=== PATIENT | male | born 1990 | race Caucasian/White ===

== ENCOUNTER 2021-06-15 03:19 | Observation (INO) | payer SELFPAY ==
[2021-06-15] VITALS (9 sets, daily range): BP systolic 94–126; BP diastolic 48–82
[~2021-06-15] VITALS: Ht 175.3 cm; Wt 88.7 kg
[~2021-06-15 03:19] MED LIST: CARAFATE1 GM PO; CEPHALEXIN500 MG PO; CORTISPORIN OTI10 ML AD; RANITIDINE75 M3 PO
[2021-06-15 04:25] LABS: HEMATOCRIT 42.6 % (39.0-50.0); HEMOGLOBIN 14.2 g/dl (14.0-18.0); IMMATURE GRANULOCYTES 0.4 % (0.0-5.0); MEAN CELL VOLUME 83.9 fL CALC (80.0-100.0); MEAN CORPUSCULAR HGB CONC 33.3 g/dL CAL (32.0-36.0); NEUT# 3.83 thou/uL (1.82-7.42); RED BLOOD COUNT 5.08 mill/uL (4.70-6.10); RED CELL DISTRI WIDTH 12.4 % (11.5-15.5)
[2021-06-15 04:38] LABS: ALBUMIN 4.5 g/dL (3.2-5.0); ALKALINE PHOSPHATASE 81 u/l (38-126); AMYLASE 54 u/l (30-110); ANION GAP 10 (6-22 (CALC)); BILIRUBIN, TOTAL 0.7 mg/dL (0.0-1.4); BUN 19 mg/dL (9-20); BUN/CREATININE RATIO 22 (12-20 (CALC)); CARBON DIOXIDE 27 mmol/l (22-30); CHLORIDE 106 mmol/l (95-108); CREATININE 0.9 mg/dL (0.7-1.3); GFR > 60 ML/MIN (>=60 (CALC)); GFR FOR AFR.AMER. > 60 ML/MIN (>=60 (CALC)); LIPASE 95 u/l (23-300); POTASSIUM 4.1 mmol/l (3.5-5.1); SGOT/AST 30 u/l (17-59); SODIUM 139 mmol/l (137-146); TOTAL PROTEIN 7.6 g/dL (6.3-8.2)
[2021-06-15 05:47] LABS: URINE BILIRUBIN - DIPSTICK NEGATIVE (NEGATIVE); URINE BLOOD DIPSTICK NEGATIVE (NEGATIVE); URINE COLOR YELLOW; URINE GLUCOSE - DIPSTICK NEGATIVE (NEGATIVE); URINE KETONE NEGATIVE (NEGATIVE); URINE LEUK ESTERASE NEGATIVE (NEGATIVE); URINE NITRITE - DIPSTICK NEGATIVE (Negative); URINE PROTEIN - DIPSTICK NEGATIVE (NEG-TRACE); URINE SPECIFIC GRAVITY 1.025; URINE UROBILINOGEN - DIPSTICK 0.2 E.U./dL (0.2)
[2021-06-15] MEDS ORDERED: PERCOCET 5/325M1 TAB PO (11:22)
[2021-06-21] MEDS ORDERED: PERCOCET 5/325M1 TAB PO (10:33)
== END 2021-06-15 18:55 | disposition home or self-care (01) | DRG 343 ==
LOC: ED 03:19 → ED-I 05:37 → ED 05:57 → MS2 05:58
PROVIDERS: ADMIT Surgery; ATTEND Surgery
PROC: 0DTJ4ZZ Resection of Appendix, Percutaneous Endoscopic Approach (ICD-10-PCS; principal; 2021-06-15)
DX: K35.30 Acute appendicitis with localized peritonitis, without perforation or gangrene (principal); Z20.822 Contact with and (suspected) exposure to COVID-19
CPT/HCPCS: G0378; J0131; J2710; Q9967

== ENCOUNTER 2021-06-29 16:37 | Emergency (ER) | payer OTHER ==
[~2021-06-29] VITALS: Ht 175.3 cm; Wt 90.0 kg
[~2021-06-29 16:37] MED LIST changes: +PERCOCET 5/325M1 TAB PO
[2021-06-29 18:05] VITALS: BP 131/88
[2021-07-05] MEDS ORDERED: PERCOCET 5/325M1 TAB PO (10:38)
== END 2021-06-29 18:05 | disposition home or self-care (01) | DRG 605 ==
LOC: ED 16:37
DX: S80.12XA Contusion of left lower leg, initial encounter (principal); V49.40XA Driver injured in collision with unspecified motor vehicles in traffic accident, initial encounter; Z90.49 Acquired absence of other specified parts of digestive tract

== ENCOUNTER 2021-07-04 15:11 | Emergency (ER) | payer OTHER ==
[~2021-07-04] VITALS: Ht 175.3 cm; Wt 94.0 kg
[2021-07-04 15:50] VITALS: BP 125/82
[2021-07-05] MEDS ORDERED: PERCOCET 5/325M1 TAB PO (10:38)
== END 2021-07-04 15:50 | disposition home or self-care (01) | DRG 950 ==
LOC: ED 15:11
DX: S80.12XD Contusion of left lower leg, subsequent encounter (principal); V49.9XXD Car occupant (driver) (passenger) injured in unspecified traffic accident, subsequent encounter